=== PATIENT | female | born 1940 | race Caucasian/White ===

== ENCOUNTER 2016-06-27 11:00 | Inpatient (IN) | payer OTHER, MEDICAID ==
[2016-06-27] VITALS (9 sets, daily range): BP systolic 116–179; BP diastolic 52–123
[~2016-06-27] VITALS: Ht 167.6 cm; Wt 87.7 kg
[~2016-06-27 11:00] MED LIST: CELEBREX200 MG PO; GLIPIZIDE2.5 M1 PO; JANUMET1 TAB PO; LEVEMIR100 U/M1 SC; LOSARTAN POTASS25 M1 PO; METAPROTER10 MG/5 M1 PO; NEU300 PO; PROTONIX20 MG PO; VENLAFAXINE150 M1 PO; [UNRECOGNIZED DRUG - OTHER] PO
[2016-06-27 12:19] LABS: BASOPHIL % 0.3 % (0-2); PLATELET COUNT 344 x10^3mcL (130-400)
[2016-06-27 12:20] LABS: RED CELL DISTRIBUTION WIDTH 15.4 % (11.5-14.5)
[2016-06-27 12:23] LABS: CALCIUM 8.8 mg/dL (8.5-10.1); CARBON DIOXIDE 28.8 mmol/L (21-32); CHLORIDE SERUM 100 mmol/L (98-107); CREATININE SERUM 1.1 mg/dL (0.6-1.0); GLUCOSE SERUM 180 mg/dL (74-106); POTASSIUM SERUM 4.6 mmol/L (3.5-5.1); SODIUM SERUM 136 mmol/L (136-145)
[2016-06-27 12:34] LABS: ALKALINE PHOSPHATASE 76 U/L (46-116); ALT/SGPT 20 U/L (14-59); AST/SGOT 18 U/L (15-37); BILIRUBIN TOTAL 0.2 mg/dL (0.20-1.00); C REACTIVE PROTEIN 4.4 mg/dL (<=0.9); TOTAL PROTEIN, SERUM 8.1 g/dL (6.4-8.2)
[2016-06-27 12:39] LABS: FREE T4 1.14 ng/dL (0.76-1.46); FREE THYROXINE INDEX 2.8 ug/dL (1.4-4.5); T4(THYROXINE) 7.8 ug/dL (4.7-13.3)
[2016-06-27 12:40] LABS: ALBUMIN 2.9 g/dL (3.4-5.0); CK-MB 0.8 ng/mL (0-3.6)
[2016-06-27 12:44] LABS: T3 TOTAL 0.81 ng/mL
[2016-06-27 13:31] LABS: ERYTHROCYTE SED RATE 87 mm/hr (0-30)
[2016-06-27 13:39] LABS: CHOLESTEROL/HDL RATIO 3.9
[2016-06-27] MEDS ORDERED: NEURONTIN600 MG PO (13:50)
[2016-06-27] MEDS ORDERED: ALBUTEROL S2 MG/5 ML PO (13:51)
[2016-06-27] MEDS ORDERED: SUDOGEST60 MG PO (13:51)
[2016-06-27] MEDS ORDERED: LOSARTAN POTASS25 M1 PO (14:24)
[2016-06-27] MEDS ORDERED: JANUVIA100 M1 PO (14:24)
[2016-06-27] MEDS ORDERED: METFORMIN HCL1000 MG PO (14:25)
[2016-06-27] MEDS ORDERED: BALSALAZIDE DI750 M1 PO (14:25)
[2016-06-27] MEDS ORDERED: VENLAFAXINE HY150 MG PO (14:26)
[2016-06-27] MEDS ORDERED: NEXIUM40 MG PO (14:26)
[2016-06-27 15:09] LABS: microscopic required? YES; urine erythrocyte TRACE (NEGATIVE)
[2016-06-28] VITALS (17 sets, daily range): BP systolic 122–176; BP diastolic 55–79
[2016-06-28 05:37] LABS: BASOPHIL % 0.5 % (0-2); PLATELET COUNT 263 x10^3mcL (130-400)
[2016-06-28 05:40] LABS: RED CELL DISTRIBUTION WIDTH 15.8 % (11.5-14.5)
[2016-06-28 05:49] LABS: CALCIUM 7.9 mg/dL (8.5-10.1); CHLORIDE SERUM 104 mmol/L (98-107); GLUCOSE SERUM 198 mg/dL (74-106); MAGNESIUM 1.8 mg/dL (1.8-2.4); PHOSPHOROUS 3.8 mg/dL (2.5-4.9); POTASSIUM SERUM 4.4 mmol/L (3.5-5.1); SODIUM SERUM 137 mmol/L (136-145)
[2016-06-29] VITALS (20 sets, daily range): BP systolic 125–174; BP diastolic 46–98
[2016-06-29 05:41] LABS: BASOPHIL % 0.6 % (0-2); PLATELET COUNT 292 x10^3mcL (130-400)
[2016-06-29 05:42] LABS: RED CELL DISTRIBUTION WIDTH 15.3 % (11.5-14.5)
[2016-06-29 05:56] LABS: CALCIUM 8.2 mg/dL (8.5-10.1); CARBON DIOXIDE 27.5 mmol/L (21-32); CHLORIDE SERUM 104 mmol/L (98-107); CREATININE SERUM 1.1 mg/dL (0.6-1.0); GLUCOSE SERUM 124 mg/dL (74-106); MAGNESIUM 1.9 mg/dL (1.8-2.4); PHOSPHOROUS 4.1 mg/dL (2.5-4.9); POTASSIUM SERUM 4.2 mmol/L (3.5-5.1); SODIUM SERUM 138 mmol/L (136-145)
[2016-06-30] VITALS (14 sets, daily range): BP systolic 132–159; BP diastolic 50–70
[2016-06-30 05:51] LABS: BASOPHIL % 0.2 % (0-2); PLATELET COUNT 241 x10^3mcL (130-400)
[2016-06-30 06:02] LABS: CALCIUM 7.8 mg/dL (8.5-10.1); CARBON DIOXIDE 28.1 mmol/L (21-32); CHLORIDE SERUM 106 mmol/L (98-107); CREATININE SERUM 1.1 mg/dL (0.6-1.0); GLUCOSE SERUM 159 mg/dL (74-106); PHOSPHOROUS 3.6 mg/dL (2.5-4.9); POTASSIUM SERUM 3.7 mmol/L (3.5-5.1); SODIUM SERUM 139 mmol/L (136-145)
[2016-07-01] VITALS (14 sets, daily range): BP systolic 109–176; BP diastolic 47–87
[2016-07-01 05:38] LABS: CALCIUM 7.8 mg/dL (8.5-10.1); CARBON DIOXIDE 27.7 mmol/L (21-32); CHLORIDE SERUM 107 mmol/L (98-107); CREATININE SERUM 1.2 mg/dL (0.6-1.0); GLUCOSE SERUM 221 mg/dL (74-106); MAGNESIUM 2.1 mg/dL (1.8-2.4); PHOSPHOROUS 2.2 mg/dL (2.5-4.9); POTASSIUM SERUM 3.7 mmol/L (3.5-5.1); SODIUM SERUM 142 mmol/L (136-145)
[2016-07-01 05:47] LABS: BASOPHIL % 0.3 % (0-2); PLATELET COUNT 241 x10^3mcL (130-400)
[2016-07-01 05:52] LABS: RED CELL DISTRIBUTION WIDTH 16.1 % (11.5-14.5)
[2016-07-02 03:35] VITALS: BP 130/59
[2016-07-02 05:23] LABS: BASOPHIL % 0.3 % (0-2); PLATELET COUNT 279 x10^3mcL (130-400)
[2016-07-02 05:25] LABS: RED CELL DISTRIBUTION WIDTH 16.1 % (11.5-14.5)
[2016-07-02 05:50] LABS: CALCIUM 8.3 mg/dL (8.5-10.1); CARBON DIOXIDE 27.8 mmol/L (21-32); CHLORIDE SERUM 110 mmol/L (98-107); CREATININE SERUM 1.1 mg/dL (0.6-1.0); GLUCOSE SERUM 124 mg/dL (74-106); MAGNESIUM 2.3 mg/dL (1.8-2.4); PHOSPHOROUS 3.3 mg/dL (2.5-4.9); POTASSIUM SERUM 3.5 mmol/L (3.5-5.1); SODIUM SERUM 145 mmol/L (136-145)
[2016-07-02 07:30] VITALS: BP 133/45
[2016-07-02 11:30] VITALS: BP 153/101
[2016-07-02 15:14] VITALS: BP 128/73
[2016-07-02 17:30] VITALS: BP 107/57
[2016-07-02 21:43] VITALS: BP 132/56
[2016-07-03] VITALS (11 sets, daily range): BP systolic 135–182; BP diastolic 59–82
[2016-07-03 06:32] LABS: BASOPHIL % 0.2 % (0-2); PLATELET COUNT 325 x10^3mcL (130-400)
[2016-07-03 06:46] LABS: RED CELL DISTRIBUTION WIDTH 16.2 % (11.5-14.5)
[2016-07-03 06:49] LABS: CALCIUM 8.6 mg/dL (8.5-10.1); CHLORIDE SERUM 106 mmol/L (98-107); CREATININE SERUM 1.3 mg/dL (0.6-1.0); GLUCOSE SERUM 159 mg/dL (74-106); MAGNESIUM 2.3 mg/dL (1.8-2.4); PHOSPHOROUS 3.3 mg/dL (2.5-4.9); POTASSIUM SERUM 3.6 mmol/L (3.5-5.1); SODIUM SERUM 143 mmol/L (136-145)
[2016-07-04] VITALS (18 sets, daily range): BP systolic 123–162; BP diastolic 53–69
[2016-07-04 05:50] LABS: BASOPHIL % 0.3 % (0-2); PLATELET COUNT 313 x10^3mcL (130-400)
[2016-07-04 05:54] LABS: RED CELL DISTRIBUTION WIDTH 16.6 % (11.5-14.5)
[2016-07-04 06:10] LABS: CALCIUM 8.3 mg/dL (8.5-10.1); CARBON DIOXIDE 26.6 mmol/L (21-32); CHLORIDE SERUM 110 mmol/L (98-107); CREATININE SERUM 1.1 mg/dL (0.6-1.0); GLUCOSE SERUM 201 mg/dL (74-106); MAGNESIUM 2.3 mg/dL (1.8-2.4); PHOSPHOROUS 2.8 mg/dL (2.5-4.9); POTASSIUM SERUM 3.5 mmol/L (3.5-5.1); SODIUM SERUM 144 mmol/L (136-145)
[2016-07-05] VITALS (15 sets, daily range): BP systolic 132–190; BP diastolic 57–96
[2016-07-05 05:39] LABS: PLATELET COUNT 373 x10^3mcL (130-400)
[2016-07-05 05:40] LABS: RED CELL DISTRIBUTION WIDTH 16.7 % (11.5-14.5)
[2016-07-05 05:41] LABS: BASOPHIL % 0 % (0-2)
[2016-07-05 05:44] LABS: CALCIUM 8.7 mg/dL (8.5-10.1); CARBON DIOXIDE 31.1 mmol/L (21-32); CHLORIDE SERUM 107 mmol/L (98-107); CREATININE SERUM 1.3 mg/dL (0.6-1.0); GLUCOSE SERUM 367 mg/dL (74-106); MAGNESIUM 2.3 mg/dL (1.8-2.4); PHOSPHOROUS 3.9 mg/dL (2.5-4.9); POTASSIUM SERUM 4.1 mmol/L (3.5-5.1); SODIUM SERUM 144 mmol/L (136-145)
[2016-07-06] VITALS (19 sets, daily range): BP systolic 116–183; BP diastolic 55–84
[2016-07-06 06:07] LABS: CALCIUM 8.8 mg/dL (8.5-10.1); CARBON DIOXIDE 33.1 mmol/L (21-32); CHLORIDE SERUM 107 mmol/L (98-107); CREATININE SERUM 1.3 mg/dL (0.6-1.0); GLUCOSE SERUM 406 mg/dL (74-106); MAGNESIUM 2.1 mg/dL (1.8-2.4); PHOSPHOROUS 2.7 mg/dL (2.5-4.9); POTASSIUM SERUM 3.8 mmol/L (3.5-5.1); SODIUM SERUM 145 mmol/L (136-145)
[2016-07-06 06:11] LABS: BASOPHIL % 0.2 % (0-2)
[2016-07-06 06:14] LABS: PLATELET COUNT 405 x10^3mcL (130-400); RED CELL DISTRIBUTION WIDTH 17.1 % (11.5-14.5)
[2016-07-07] VITALS (17 sets, daily range): BP systolic 155–195; BP diastolic 54–122
[2016-07-07 05:29] LABS: BASOPHIL % 0 % (0-2); PLATELET COUNT 415 x10^3mcL (130-400); RED CELL DISTRIBUTION WIDTH 16.7 % (11.5-14.5)
[2016-07-07 05:37] LABS: CALCIUM 8.9 mg/dL (8.5-10.1); CARBON DIOXIDE 34.9 mmol/L (21-32); CHLORIDE SERUM 106 mmol/L (98-107); CREATININE SERUM 1.1 mg/dL (0.6-1.0); GLUCOSE SERUM 317 mg/dL (74-106); MAGNESIUM 1.9 mg/dL (1.8-2.4); PHOSPHOROUS 2.8 mg/dL (2.5-4.9); POTASSIUM SERUM 3.5 mmol/L (3.5-5.1); SODIUM SERUM 146 mmol/L (136-145)
[2016-07-08] VITALS (18 sets, daily range): BP systolic 135–179; BP diastolic 52–88
[2016-07-08 04:56] LABS: BASOPHIL % 0.2 % (0-2); PLATELET COUNT 380 x10^3mcL (130-400)
[2016-07-08 04:57] LABS: RED CELL DISTRIBUTION WIDTH 17.4 % (11.5-14.5)
[2016-07-08 05:21] LABS: CALCIUM 8.6 mg/dL (8.5-10.1); CARBON DIOXIDE 37.2 mmol/L (21-32); CHLORIDE SERUM 106 mmol/L (98-107); GLUCOSE SERUM 213 mg/dL (74-106); MAGNESIUM 1.9 mg/dL (1.8-2.4); PHOSPHOROUS 3.2 mg/dL (2.5-4.9); POTASSIUM SERUM 3.2 mmol/L (3.5-5.1); SODIUM SERUM 146 mmol/L (136-145)
[2016-07-09] VITALS (16 sets, daily range): BP systolic 132–181; BP diastolic 53–86
[2016-07-09 05:08] LABS: BASOPHIL % 0.1 % (0-2)
[2016-07-09 05:09] LABS: PLATELET COUNT 408 x10^3mcL (130-400)
[2016-07-09 05:17] LABS: CALCIUM 8.9 mg/dL (8.5-10.1); CARBON DIOXIDE 36.6 mmol/L (21-32); CHLORIDE SERUM 101 mmol/L (98-107); CREATININE SERUM 1.2 mg/dL (0.6-1.0); GLUCOSE SERUM 333 mg/dL (74-106); POTASSIUM SERUM 3.4 mmol/L (3.5-5.1); SODIUM SERUM 142 mmol/L (136-145)
[2016-07-10] VITALS (7 sets, daily range): BP systolic 111–168; BP diastolic 50–78; Ht 167.6 cm; Wt 87.7 kg
[2016-07-10 04:43] LABS: BASOPHIL % 0 % (0-2); PLATELET COUNT 431 x10^3mcL (130-400); RED CELL DISTRIBUTION WIDTH 16.7 % (11.5-14.5)
[2016-07-10 04:56] LABS: CALCIUM 8.8 mg/dL (8.5-10.1); CARBON DIOXIDE 39.1 mmol/L (21-32); CHLORIDE SERUM 103 mmol/L (98-107); CREATININE SERUM 1.1 mg/dL (0.6-1.0); GLUCOSE SERUM 147 mg/dL (74-106); POTASSIUM SERUM 3.1 mmol/L (3.5-5.1); SODIUM SERUM 146 mmol/L (136-145)
[2016-07-11 05:41] VITALS: BP 149/56
[2016-07-11 06:16] LABS: CALCIUM 8.1 mg/dL (8.5-10.1); CARBON DIOXIDE 34.4 mmol/L (21-32); CHLORIDE SERUM 101 mmol/L (98-107); CREATININE SERUM 1.2 mg/dL (0.6-1.0); GLUCOSE SERUM 206 mg/dL (74-106); SODIUM SERUM 141 mmol/L (136-145)
[2016-07-11 06:24] LABS: POTASSIUM SERUM 2.9 mmol/L (3.5-5.1)
[2016-07-11 06:37] LABS: BASOPHIL % 0.3 % (0-2); PLATELET COUNT 325 x10^3mcL (130-400)
[2016-07-11 06:57] LABS: RED CELL DISTRIBUTION WIDTH 16.8 % (11.5-14.5)
[2016-07-11 09:42] VITALS: BP 159/50
[2016-07-11 13:47] VITALS: BP 183/66
[2016-07-11 17:01] VITALS: BP 150/48
[2016-07-11 17:03] VITALS: BP 150/48
[2016-07-11] MEDS ORDERED: FLAGYL500 MG IV (19:06)
[2016-07-11] MEDS ORDERED: AMERINET CHOICE1 PD3 IV (19:07)
[2016-07-11] MEDS ORDERED: IPRATROPIUM BROM3 M2 HHN ×2 (19:07)
[2016-07-11] MEDS ORDERED: HEP5I SC (19:08)
[2016-07-11] MEDS ORDERED: FERL PO (19:08)
[2016-07-11] MEDS ORDERED: NIT0.4 SL (19:09)
[2016-07-11] MEDS ORDERED: BAY NG (19:09)
[2016-07-11] MEDS ORDERED: NOR5 PO (19:09)
[2016-07-11] MEDS ORDERED: COZ50 PO (19:09)
[2016-07-11] MEDS ORDERED: LIPI20 PO (19:09)
[2016-07-11] MEDS ORDERED: DEXPF IV (19:10)
[2016-07-11] MEDS ORDERED: TYL325 PO (19:10)
[2016-07-11] MEDS ORDERED: MOR2I IV (19:10)
[2016-07-11] MEDS ORDERED: PULMICORT0.25 MG/2 IH (19:10)
[2016-07-11] MEDS ORDERED: BG MC (19:10)
[2016-07-11] MEDS ORDERED: LAC PO (19:11)
[2016-07-11] MEDS ORDERED: COL100UDC NG (19:11)
[2016-07-11] MEDS ORDERED: SOL40I IV (19:11)
[2016-07-11] MEDS ORDERED: DUL10S RC (19:11)
[2016-07-11] MEDS ORDERED: MVIL PO (19:12)
[2016-07-11] MEDS ORDERED: PROT40I IV (19:12)
[2016-07-11] MEDS ORDERED: HUMULIN R100 U/1 M1 SC (19:12)
[2016-07-11] MEDS ORDERED: LEVEMIR100 U/M1 SQ (19:12)
[2016-07-11] MEDS ORDERED: ZOFI IV (19:12)
[2016-07-11 22:00] VITALS: BP 139/55
== END 2016-07-11 23:23 | DRG 207 ==
LOC: ED 11:00 → IC 12:39 → DU 13:10 → IC 13:32 → DU 07-02 17:24 → IC 07-02 17:28 → DU 07-02 17:48 → MU 07-03 13:44 → IC 07-03 15:13 → DU 07-10 18:11 → MU 07-11 04:46 → DU 07-11 17:49
PROVIDERS: Family Medicine; Specialist; ADMIT Family Medicine
PROC: 5A1955Z Respiratory Ventilation, Greater than 96 Consecutive Hours (ICD-10-PCS; principal; 2016-06-27)
PROC: 0BH17EZ Insertion of Endotracheal Airway into Trachea, Via Natural or Artificial Opening (ICD-10-PCS; 2016-06-27)
PROC: 0BH17EZ Insertion of Endotracheal Airway into Trachea, Via Natural or Artificial Opening (ICD-10-PCS; 2016-07-03)
PROC: 5A1955Z Respiratory Ventilation, Greater than 96 Consecutive Hours (ICD-10-PCS; 2016-07-03)
DX: J69.0 Pneumonitis due to inhalation of food and vomit (principal); N17.0 Acute kidney failure with tubular necrosis; J96.21 Acute and chronic respiratory failure with hypoxia; E43 Unspecified severe protein-calorie malnutrition; J44.1 Chronic obstructive pulmonary disease with (acute) exacerbation; D68.69 Other thrombophilia; I42.0 Dilated cardiomyopathy; E87.0 Hyperosmolality and hypernatremia; E87.4 Mixed disorder of acid-base balance; B37.49 Other urogenital candidiasis; E11.65 Type 2 diabetes mellitus with hyperglycemia; E11.51 Type 2 diabetes mellitus with diabetic peripheral angiopathy without gangrene; E11.42 Type 2 diabetes mellitus with diabetic polyneuropathy; R80.8 Other proteinuria; E83.51 Hypocalcemia; K59.00 Constipation, unspecified; E87.8 Other disorders of electrolyte and fluid balance, not elsewhere classified; D47.3 Essential (hemorrhagic) thrombocythemia; E78.5 Hyperlipidemia, unspecified; E83.39 Other disorders of phosphorus metabolism; D64.9 Anemia, unspecified; E66.9 Obesity, unspecified; Z89.421 Acquired absence of other right toe(s); Z68.34 Body mass index [BMI] 34.0-34.9, adult; Z79.84 Long term (current) use of oral hypoglycemic drugs
CPT/HCPCS: 31500; 36600; 82962; 83880; 84439; 87046; 87046-59; 87804; 92610-GN; 94150; 97110-GP; 97116-GP; 97530-GP; A4628; C9113; J0330; J0360; J1450; J1642; J1644; J1815; J1885; J1940; J2250; J2270; J2543; J2704; J2920; J3010; J3480; J3490; J7030; J7040; J7613; J7620; J7633; J7644; Q0092; Q9967

== ENCOUNTER 2017-10-10 12:28 | Emergency (ER) | payer OTHER, MEDICAID ==
[~2017-10-10] VITALS: Ht 167.6 cm; Wt 75.7 kg
[~2017-10-10 12:28] MED LIST changes: +ALBUTEROL S2 MG/5 ML PO; +AMERINET CHOICE1 PD3 IV; +BALSALAZIDE DI750 M1 PO; +BAY NG; +BG MC; +COL100UDC NG; +COZ50 PO; +DEXPF IV; +DUL10S RC; +FERL PO; +FLAGYL500 MG IV; +HEP5I SC; +HUMULIN R100 U/1 M1 SC; +IPRATROPIUM BROM3 M2 HHN; +JANUVIA100 M1 PO; +LAC PO; +LEVEMIR100 U/M1 SQ; +LIPI20 PO; +METFORMIN HCL1000 MG PO; +MOR2I IV; +MVIL PO; +NEURONTIN600 MG PO; +NEXIUM40 MG PO; +NIT0.4 SL; +NOR5 PO; +PROT40I IV; +PULMICORT0.25 MG/2 IH; +SOL40I IV; +SUDOGEST60 MG PO; +TYL325 PO; +VENLAFAXINE HY150 MG PO; +ZOFI IV
[2017-10-10 12:49] VITALS: BP 115/77
== END 2017-10-10 14:58 | disposition left against medical advice (07) ==
LOC: ED 12:28
DX: Z53.21 Procedure and treatment not carried out due to patient leaving prior to being seen by health care provider (principal)